=== PATIENT | female | born 1975 | race Caucasian/White ===

== ENCOUNTER → 2017-06-06 | Day surgery (SDC) | payer OTHER ==
[~2017-06-06] VITALS: Ht 154.9 cm; Wt 49.9 kg
[~2017-06-06] MED LIST: KEPPRA500 M1 PO; LISINOPRIL2.5 M1 PO
--- NOTE | 2017-06-11 13:43 | Operative Report ---
Operative/Inv Procedure Report Surgery Date: 06/06/17 Name of Procedure: Laparoscopy bilateral tubal ligation removal of IUD Pre-Operative Diagnosis: Multiparity Post-Operative Diagnosis: Same Estimated Blood Loss: 50ml to 100ml Surgeon/Swine Extension Field Specialist: RUBEN SANCHES MD Anesthesia: general endotracheal tube Operative/Procedure Note Note: She did not patient was taken the operating room placed on position after adequate induction general anesthesia via endotracheal tube patient placed in dorsolithotomy position the vagina from dorsal fashion bladder was catheterized examination under anesthesia performed a single-tooth tenaculum placed on the Intralipid cervix gentle downward traction at this point the IUD was removed patient tolerated that well on this point surgeon regowned and gloved at the level of the umbilicus a stab incision was made to allow for the entry of Veress needle the abdomen was insufflated possibly fully Z CO2 to liver edge dullness which point the Veress needle was removed a 10 mm trocar was inserted atraumatically the umbilicus sheath remained placed through that sheath a laparoscope placed under direct visualization a 5 mm port was placed to bring minutes of symptoms pubis in the midline through that a Kleppinger was placed right tube was picked up carried to its fimbriated in excellent 7 cm that tube Bovie coagulated left tube was picked up carried to its fimbriated end Floridalma 7 cm that tube was Bovie quite hemostasis was apparent pictures were taken maximal CO2 was removed from the abdomen at this point incision the umbilicus oversewn using 0 skin was reapproximated both incisions using 30 Marcaine was injected underneath the incision as well as on at this point sterile dressings were applied the end the case the [place] was removed the Rasmussen cannula was moved the patient was returned spine position she was awakened from anesthesia extubated and transported recovery room awake alert with counts correct Findings: Normal tubes and ovaries bilaterally evidence of shunt normal IUD removed from uterus consistent with Mirena
== END ==
LOC: STS 01:43
DX: Z30.2 Encounter for sterilization (principal); Z30.432 Encounter for removal of intrauterine contraceptive device; I10 Essential (primary) hypertension
CPT/HCPCS: 36415; C9399; J2250